=== PATIENT | female | born 2000 | race Caucasian/White ===

== ENCOUNTER 2019-10-19 14:55 | Emergency (ER) | payer OTHER, SELFPAY ==
[2019-10-19 14:56] VITALS: BMI 25.6
--- NOTE | 2019-10-19 14:58 | ED_ITS ---
Entered by Mandi Flower, acting as scribe for ZakiaEvelin HPI - Abdominal Pain General: Chief Complaint: Urogenital-Female Stated Complaint: KIDNEY PROBLEMS Time Seen by Provider: 10/19/19 14:57 Source: patient and RN notes reviewed Mode of arrival: ambulatory Limitations: no limitations History of Present Illness: HPI narrative: 18 yo female presents to ED with complaints of R side flank pain. The patient states she has had cloudy urine for 2 days and she began having R flank pain today. She has had a headache and chills. She denies vomiting. She said she has an umbilical hernia but has not had it repeired. She has no past pertinent medical history. She denies smoking and use of street drugs. MD elicited complaint: abdominal pain (R) and flank pain (R) Pertinent past history: none Onset (ago): day(s) (2) Pain Consistency: constant Location: RLQ and R flank Severity: moderate Quality: stabbing Radiation: RLQ Migration to: RLQ Exacerbating factors: nothing Relieving factors: nothing Associated Symptoms: Reports chills; Denies coffee ground emesis, constipation, GI cramping, diarrhea, hematochezia, hematuria, hematemesis, melena, nausea, syncope and vomiting Review of Systems General: Reports: other (negative unless marked) Const: Reports: chills Eyes: Denies: change in vision or blurry vision ENMT: Denies: throat pain, painful swallowing, hoarseness, ear pain, ear discharge, Change in hearing or nasal discharge Card: Denies: chest pain, palpitations, irregular heart rhythm, syncope, pre- syncope, shortness of breath on exertion or shortness of breath when lying down Resp: Denies: shortness of breath, productive cough, non-productive cough, wheezing, coughing up blood or chest congestion GI: Denies: abdominal pain, nausea, vomiting, vomiting blood, coffee grounds in vomit, diarrhea, constipation, cramping, blood in stool or black tarry stool : Denies: decreased urine ouput, urinary incontinence or blood in urine Musc: Denies: neck pain, back pain, extremity pain, extremity swelling, joint pain, joint swelling, joint warmth or joint stiffness Skin/Breast: Denies: rash, skin tenderness or yellow skin Neuro: Denies: headache, numbness in extremities, weakness in extremities, changes in sensation, lack of coordination, difficulty walking, dizziness, vertigo or confusion Endo: Denies: excessive thirst, tired all the time, cold intolerance, excessive sweating, flushing or hot flashes Ziyad/Lymph: Denies: easy bruising, easy bleeding, petechiae or enlarged lymph nodes All/Imm: Denies: hives, throat swelling, tongue swelling, facial swelling or acute wheezing PFSH ED PFSH: Social History Smoking and tobacco status: never smoked Alcohol intake: never Physical Exam Const: COMMON NORMALS: no apparent distress, oriented x3, no limitations, healthy appearing and well nourished EXAM LIMITATIONS: no altered mental status GENERAL APPEARANCE: cooperative, well kempt and well developed ORIENTATION/CONSCIOUSNESS: Yes awake HENMT: COMMON NORMALS: normocephalic, head/scalp atraumatic, hearing grossly normal bilaterally, external ears normal, EAC's normal, external nose normal and moist oral mucous membranes HEAD & SCALP: normal to inspection, normocephalic and atraumatic FACE & SINUS: normal facial exam and face symmetric NOSE: external nose normal and nares normal EXTERNAL EAR: Yes external ears normal EXTERNAL AUDITORY CANAL: EAC's normal MOUTH: oral and palatal mucosa normal and tongue normal Eye: COMMON NORMALS: PERRL, EOMs intact bilaterally, conjunctivae normal and no scleral icterus GENERAL EYE: normal appearance of both eyes and normal light reflex CONJUNCTIVA: Yes conjunctivae normal SCLERA: sclerae normal CORNEA: Yes corneas normal PUPIL: Yes PERRL DIRECT OPHTHALMOSCOPY: Yes normal light reflex Neck/C-Spine: COMMON NORMALS: full ROM, no lymphadenopathy, supple, no meningeal signs and no JVD GENERAL: Yes normal visual inspection and Yes trachea midline CERVICAL SPINE: Yes cervical ROM normal Chest: COMMONS NORMALS: inspection of chest normal and palpation of chest normal Resp: COMMON NORMALS: normal respiratory effort, no retractions, no use of accessory muscles and clear to auscultation bilaterally EFFORT & INSPECTION: Yes able to speak in complete sentences AUSCULTATION: clear to auscultation bilaterally Cardio: COMMON NORMALS: no JVD, regular rate, regular rhythm, S1 normal heart sound, S2 normal heart sound, no gallops, no clicks, no murmurs and no rub JUGULAR VENOUS DISTENTION: no JVD RATE: regular rate and tachycardic RHYTHM: regular rhythm HEART SOUNDS: S1 normal and S2 normal GI: COMMON NORMALS: soft to palpation, no hepatosplenomegaly and no masses INSPECTION: Yes normal to inspection PALPATION: Yes soft and Yes no hepatosplenomegaly Back/Pelvis: COMMON NORMALS: thoracic and lumbar spine normal to inspection, no thoracic nor lumbar tenderness and thoraco-lumbar ROM normal Extremity: COMMON NORMALS: normal to inspection, full ROM, normal capillary refill, no joint enlargement, no clubbing, cyanosis or edema and no calf tenderness Neuro: COMMON NORMALS: oriented x3, CN's II-XII intact bilaterally, moves all extremities, no focal motor deficits and no sensory deficits noted MENINGEAL SIGNS: Yes no meningeal signs Psych: COMMON NORMALS: mental status grossly normal, thought process normal, cooperative, affect normal, speech normal and activity/motor behavior normal APPEARANCE: Yes well kempt SPEECH: Yes normal speech THOUGHT PROCESS: normal thought process Skin: COMMON NORMALS: no rashes or lesions noted, skin turgor normal, no jaundice, no petechiae and no mottling GENERAL SKIN EXAM: no rashes or lesions noted and turgor normal Course Vital Signs: Vital signs: Vital Signs Temperature 100.7 F H 10/19/19 15:02 Pulse Rate 86 10/19/19 17:12 Respiratory Rate 17 10/19/19 17:12 Blood Pressure 113/53 10/19/19 17:12 Pulse Oximetry 98 10/19/19 17:12 MDM - Abdominal Pain MDM Narrative: Medical decision making narrative: Diane is a very nice 18-year-old female who comes in complaining of right flank pain. CT scan shows no evidence of appendicitis or renal stone. Her findings are consistent with a pyelonephritis. She was febrile here but her lactate is normal. She is able to keep down fluids and medications without any vomiting. She feels like going home. I believe this was appropriate at this time. She denies having any other complaints or concerns agrees to return should her symptoms change or worsen. Lab Data: Labs: Lab Results 10/19/19 10/19/19 10/19/19 Range/Units 15:16 15:16 15:16 WBC 15.0 H (4.5-13.0) 10^3/ uL RBC 4.36 (4.1-5.3) 10^6/u L Hgb 12.7 (11.5-15.3) g/dL Hct 39.0 (37.0-47.0) % MCV 89.4 (81-99) fL MCH 29.1 (28.0-34.0) pg MCHC 32.6 (30.0-36.0) g/dL RDW 12.5 (12.1-15.1) % Plt Count 324 (130-400) 10^3/c mm MPV 10.2 (7.4-10.4) fL Neut % (Auto) 79.2 % Lymph % (Auto) 13.5 % [place] % (Auto) 6.6 % Eos % (Auto) 0.1 % Baso % (Auto) 0.3 % Neut # (Auto) 11.9 H (1.8-8.0) 10^3/u L Lymph # (Auto) 2.0 (1.5-6.5) 10^3/u L [place] # (Auto) 1.0 H (0.2-0.9) 10^3/u L Eos # (Auto) 0.0 (0.0-0.8) 10^3/u L Baso # (Auto) 0.0 (0.0-0.1) 10^3/u L Nucleated RBC % (a uto) 0 % Nucleated RBCs # 0.0 /100WBC Sodium 135 L (136-145) mmol/L Potassium 3.6 (3.5-5.1) mmol/L Chloride 98 (98-107) mmol/L Carbon Dioxide 24 (22-29) mmol/L Anion Gap 16.6 (5-19) BUN 9 (6-20) mg/dL Creatinine 0.8 (0.5-0.9) mg/dL GFR Calculation 91.4 (90-130) mL/min Glucose 158 H (65-115) mg/dL Lactic Acid 1.3 (0.5-2.2) mmol/L Calcium 9.6 (8.5-10.5) mg/dL Total Bilirubin 0.6 (0.15-1.2) mg/dL AST 14 (0-32) U/L ALT 7 (0-33) U/L Alkaline Phosphata se 126 H (35-105) IU/L Total Protein 7.8 (6.6-8.7) g/dL Albumin 4.2 (3.5-5.2) g/dL Globulin 3.6 (1.3-4.6) g/dL HCG, Qual (Negative) Urine Color (Yellow) Urine Appearance (CLEAR) Urine pH (5-7) Ur Specific Gravit y (1.005-1.030) Urine Protein (Negative) Urine Glucose (UA) (Normal) Urine Ketones (Negative) Urine Blood (Negative) Urine Nitrate (Negative) Urine Bilirubin (NEGATIVE) Urine Urobilinogen (Negative) mg/dL Ur Leukocyte Patti ase (Negative) Urine RBC (0-2) /hpf Urine WBC (0-5) /hpf Ur Squamous Epith Cells (0-5) Urine Bacteria (NONE) 10/19/19 10/19/19 Range/Units 15:16 16:30 WBC (4.5-13.0) 10^3/ uL RBC (4.1-5.3) 10^6/u L Hgb (11.5-15.3) g/dL Hct (37.0-47.0) % MCV (81-99) fL MCH (28.0-34.0) pg MCHC (30.0-36.0) g/dL RDW (12.1-15.1) % Plt Count (130-400) 10^3/c mm MPV (7.4-10.4) fL Neut % (Auto) % Lymph % (Auto) % [place] % (Auto) % Eos % (Auto) % Baso % (Auto) % Neut # (Auto) (1.8-8.0) 10^3/u L Lymph # (Auto) (1.5-6.5) 10^3/u L [place] # (Auto) (0.2-0.9) 10^3/u L Eos # (Auto) (0.0-0.8) 10^3/u L Baso # (Auto) (0.0-0.1) 10^3/u L Nucleated RBC % (a uto) % Nucleated RBCs # /100WBC Sodium (136-145) mmol/L Potassium (3.5-5.1) mmol/L Chloride (98-107) mmol/L Carbon Dioxide (22-29) mmol/L Anion Gap (5-19) BUN (6-20) mg/dL Creatinine (0.5-0.9) mg/dL GFR Calculation (90-130) mL/min Glucose (65-115) mg/dL Lactic Acid (0.5-2.2) mmol/L Calcium (8.5-10.5) mg/dL Total Bilirubin (0.15-1.2) mg/dL AST (0-32) U/L ALT (0-33) U/L Alkaline Phosphata se (35-105) IU/L Total Protein (6.6-8.7) g/dL Albumin (3.5-5.2) g/dL Globulin (1.3-4.6) g/dL HCG, Qual Negative (Negative) Urine Color Yellow (Yellow) Urine Appearance Cloudy (CLEAR) Urine pH 7.0 (5-7) Ur Specific Gravit y 1.000 L (1.005-1.030) Urine Protein Trace (Negative) Urine Glucose (UA) Norm (Normal) Urine Ketones Negative (Negative) Urine Blood 2+ H (Negative) Urine Nitrate Positive H (Negative) Urine Bilirubin Neg (NEGATIVE) Urine Urobilinogen Norm (Negative) mg/dL Ur Leukocyte Patti ase 2+ H (Negative) Urine RBC 15-25 H (0-2) /hpf Urine WBC 80-100 H (0-5) /hpf Ur Squamous Epith Cells 0-4 H (0-5) Urine Bacteria Trace (NONE) Imaging Data ^: CT Abd/Pel: Radiologist's impression: [place] [address] CT Scan Report Signed Patient: Diane Del Rosario #: [id number] : 2000Acct#:[id number] Age/Sex: FADM Date: 10/19/19 Loc: ERRoom/Bed: Attending Dr: Ordering Provider/Ordering MD: Evelin Koehler DO Date of Service: 10/19/19 Procedure(s): CT kidney stone 34050 Accession Number(s): [id number] Report Number: [id number] PROCEDURE INFORMATION: Exam: CT Abdomen And Pelvis Without Contrast Exam date and time: 10/19/2019 3:14 PM Age: 18 years old Clinical indication: Abdominal pain; Right; Patient HX: C/O R flank pain and cloudy urine x 2 days; Additional info: Flank/abdominal pain TECHNIQUE: Imaging protocol: Computed tomography of the abdomen and pelvis without contrast. Total DLP: 760.12 mGy-cm Radiation optimization: All CT scans at this facility use at least one of these dose optimization techniques: automated exposure control; mA and/or kV adjustment per patient size (includes targeted exams where dose is matched to clinical indication); or iterative reconstruction. COMPARISON: [facility] OB > 14 weeks 08/22/2017 2:50 PM FINDINGS: Liver: Normal. No mass. Gallbladder and bile ducts: Normal. No calcified stones. No ductal dilation. Pancreas: Normal. No ductal dilation. Spleen: Normal. No splenomegaly. Adrenals: Normal. No mass. Kidneys and ureters: Normal. No hydronephrosis. Stomach and bowel: Colonic constipation is present. Appendix: A normal appendix is identified. Intraperitoneal space: There is a physiologic amount of free fluid in the pelvis. Vasculature: Unremarkable. No abdominal aortic aneurysm. Lymph nodes: Unremarkable. No enlarged lymph nodes. Bladder: Unremarkable as visualized. Reproductive: Unremarkable as visualized. Bones/joints: There is a transitional lumbosacral vertebra. 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 Soft tissues: Small fat containing umbilical hernia. CT/CT kidney stone 17818 IMPRESSION: Colonic constipation is present. Radiation Dose CTDIVOL = (mGy): DLP = 760.12 (mGy-cm) Dictated By:Maricruz Hidalgo MD Signed By:Maricruz Hidalgo MDSigned Date/Time:10/19/19 1611 DD/ Discharge Plan Discharge Patient Disposition: Home, Self-Care Clinical Impression: Pyelonephritis Condition: Stable Prescriptions: New cefdinir 300 mg capsule 300 mg PO Q12H 10 Days Qty: 20 RF: 0 Zofran 4 mg tablet 4 mg PO Q6H PRN (Reason: nausea and vomiting) Qty: 20 RF: 0 Discharge Orders: Discharge Order (Routine); Ordered 10/19/19 Ordered By: Evelin Koehler Referrals: Molina Pierson MD [Primary Care Provider] - 1-3 days Discharge Diet: Advance as tolerated Discharge Activity: Increase activity as tolerated Patient Instructions: Acute Pyelonephritis (ED) Activity Restrictions/Additional Instructions: Please return to the ER immediately for any of the signs or symptoms listed on your discharge instruction sheets, worsening/changing of your symptoms, you are not getting better as quickly as expected, or for ANY other cause or concerns. Alternate Tylenol Motrin as needed for fever and pain. Push oral fluids as much as possible. Return to the ER for vomiting, uncontrolled fever, increased pain, or for any other cause for concern. Stand Alone Forms: Work/School Release Discharge Date/Time: 10/19/19 17:13 Coding Level of Care Code ED Manager Sql for Chg Fwd Exam Comprehensive The documentation recorded by the Mundo jane Valerie R, accurately reflects the service I personally performed and the decisions made by , Evelin Koehler Oct 19, 2019 14:55
--- NOTE | 2019-10-19 15:01 | CTR_ITS ---
PROCEDURE INFORMATION: Exam: CT Abdomen And Pelvis Without Contrast Exam date and time: 10/19/2019 3:14 PM Age: 18 years old Clinical indication: Abdominal pain; Right; Patient HX: C/O R flank pain and cloudy urine x 2 days; Additional info: Flank/abdominal pain TECHNIQUE: Imaging protocol: Computed tomography of the abdomen and pelvis without contrast. Total DLP: 760.12 mGy-cm Radiation optimization: All CT scans at this facility use at least one of these dose optimization techniques: automated exposure control; mA and/or kV adjustment per patient size (includes targeted exams where dose is matched to clinical indication); or iterative reconstruction. COMPARISON: [facility] OB > 14 weeks 08/22/2017 2:50 PM FINDINGS: Liver: Normal. No mass. Gallbladder and bile ducts: Normal. No calcified stones. No ductal dilation. Pancreas: Normal. No ductal dilation. Spleen: Normal. No splenomegaly. Adrenals: Normal. No mass. Kidneys and ureters: Normal. No hydronephrosis. Stomach and bowel: Colonic constipation is present. Appendix: A normal appendix is identified. Intraperitoneal space: There is a physiologic amount of free fluid in the pelvis. Vasculature: Unremarkable. No abdominal aortic aneurysm. Lymph nodes: Unremarkable. No enlarged lymph nodes. Bladder: Unremarkable as visualized. Reproductive: Unremarkable as visualized. Bones/joints: There is a transitional lumbosacral vertebra. 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 Soft tissues: Small fat containing umbilical hernia. CT/CT kidney stone 35591 IMPRESSION: Colonic constipation is present. Radiation Dose CTDIVOL = (mGy): DLP = 760.12 (mGy-cm)
[2019-10-19 15:02] VITALS: BP 138/70; PULSE 120; RESP 18; TEMP 38.2; O2SAT 99
[2019-10-19 15:26] VITALS: O2SAT 98
[2019-10-19 15:28] LABS: Basophils % 0.3 %; Eosinophils % 0.1 %; Hemoglobin 12.7 g/dL (11.5-15.3); Lymphocytes % 13.5 %; Mean Corpuscular HGB Conc 32.6 g/dL (30.0-36.0); Mean Corpuscular Hemoglobin 29.1 pg (28.0-34.0); Mean Corpuscular Volume 89.4 fL (81-99); Mean Platelet Volume 10.2 fL (7.4-10.4); Monocytes % 6.6 %; Neutrophils # 11.9 10^3/uL (1.8-8.0); Neutrophils % 79.2 %; Nucleated Red Blood Cells % 0 %; Platelet Count 324 10^3/cmm (130-400); Red Blood Count 4.36 10^6/uL (4.1-5.3); Red Cell Distribution Width 12.5 % (12.1-15.1)
[2019-10-19 15:36] LABS: HCG, Serum Qual Negative (Negative)
[2019-10-19] MEDS: cefTRIAXone 1,000 MG in sodium chloride 0.9% (plus) 50 ML 100 MG IV (15:38)
[2019-10-19] MEDS: acetaminophen 500 mg Tablet 1000 MG PO (15:38)
[2019-10-19] MEDS: sodium chloride 0.9% 1,905.09 ML 1905.1 ML IV (15:38)
[2019-10-19] MEDS: morphine 4 mg/mL SDV 1 mL IVP (15:39)
[2019-10-19] MEDS: ondansetron 2 mg/ML SDV 2 mL 4 MG IVP (15:39)
[2019-10-19 15:43] LABS: Lactic Sepsis W/Reflex 1.3 mmol/L (0.5-2.2)
[2019-10-19 15:49] LABS: Alanine Aminotransferase 7 U/L (0-33); Albumin Level 4.2 g/dL (3.5-5.2); Alkaline Phosphatase 126 IU/L (35-105); Anion Gap 16.6 (5-19); Aspartate Amino Transferase 14 U/L (0-32); Blood Urea Nitrogen 9 mg/dL (6-20); Calcium 9.6 mg/dL (8.5-10.5); Carbon Dioxide 24 mmol/L (22-29); Chloride 98 mmol/L (98-107); Creatinine Clr Calc Pharmacy 98.2125; Globulin 3.6 g/dL (1.3-4.6); Glomerular Filtration Rate 91.4 mL/min (90-130); Glucose 158 mg/dL (65-115); Potassium 3.6 mmol/L (3.5-5.1); Sodium 135 mmol/L (136-145); Total Bilirubin 0.6 mg/dL (0.15-1.2); Total Protein 7.8 g/dL (6.6-8.7)
[2019-10-19 16:50] LABS: Bilirubin Urine Neg (NEGATIVE); Blood Urine 2+ (Negative); Glucose Urine UA Norm (Normal); Ketones Urine Negative (Negative); Leukocyte Esterase Urine 2+ (Negative); Nitrate Urine Positive (Negative); Protein Urine Trace (Negative); Urine Appearance Cloudy (CLEAR); Urine Color Yellow (Yellow); Urobilinogen Urine Norm (Negative)
[2019-10-19 17:01] LABS: Add Urine Culture? Yes; Bacteria Urine TRACE; RBC Urine 15-25 /hpf (0-2); Squamous Epithelial Cell Urine 0-4 (0-5); WBC Urine 80-100 /hpf (0-5)
[2019-10-19 17:12] VITALS: BP 113/53; PULSE 86; RESP 17; O2SAT 98
== END 2019-10-19 17:13 | disposition home or self-care (01) ==
PROVIDERS: Emergency Provider Emergency Medicine; Family Provider Family Medicine; PCP Family Medicine
DX: N12 Tubulo-interstitial nephritis, not specified as acute or chronic (principal); K59.00 Constipation, unspecified
CPT/HCPCS: 12345; 74176; 80053; 81001; 83605; 84703; 85025; 87086; 96365; 96374; 96375; 99283; A9270; J0696; J2270; J2405; J7030

== ENCOUNTER 2020-04-22 20:53 | Outpatient (CLI) | payer OTHER, MEDICAID, SELFPAY ==
[2020-04-22 21:23] VITALS: BP 107/57; PULSE 72
[2020-04-22 21:27] VITALS: BMI 28.7
[2020-04-22 21:37] VITALS: TEMP 36.8
== END 2020-04-22 21:32 | disposition home or self-care (01) ==
LOC: OPOB 21:19 → OBGYN 21:19
PROVIDERS: PCP Family Medicine; Visit Provider Family Medicine
DX: O26.899 Other specified pregnancy related conditions, unspecified trimester (principal); Z3A.23 23 weeks gestation of pregnancy; R10.9 Unspecified abdominal pain
CPT/HCPCS: 99211

== ENCOUNTER 2020-04-22 21:31 | Emergency (ER) | payer OTHER, MEDICAID, SELFPAY ==
[2020-04-22 21:36] VITALS: BP 110/64; PULSE 79; RESP 16; TEMP 36.6; O2SAT 98; BMI 28.7
[2020-04-22 21:51] LABS: Basophils % 0.2 %; Eosinophils # 0.2 10^3/uL (0.0-0.8); Eosinophils % 1.6 %; Hematocrit 29.8 % (37.0-47.0); Hemoglobin 9.7 g/dL (11.5-15.3); Lymphocytes # 3.8 10^3/uL (0.8-4.8); Lymphocytes % 30.8 %; Mean Corpuscular HGB Conc 32.6 g/dL (30.0-36.0); Mean Corpuscular Hemoglobin 31.3 pg (28.0-34.0); Mean Corpuscular Volume 96.1 fL (81-99); Mean Platelet Volume 10.4 fL (7.4-10.4); Monocytes # 0.9 10^3/uL (0.2-0.9); Monocytes % 6.9 %; Neutrophils # 7.38 10^3/uL (1.8-7.7); Neutrophils % 59.6 %; Nucleated Red Blood Cells % 0 %; Platelet Count 282 10^3/cmm (130-400); Red Cell Distribution Width 13.3 % (12.1-15.1); White Blood Count 12.4 10^3/uL (4.0-10.0)
[2020-04-22 22:14] LABS: Alanine Aminotransferase < 5 U/L (0-33); Albumin Level 3.3 g/dL (3.5-5.2); Alkaline Phosphatase 71 IU/L (35-105); Anion Gap 10.5 (5-19); Aspartate Amino Transferase 9 U/L (0-32); Blood Urea Nitrogen 5 mg/dL (6-20); Calcium 8.2 mg/dL (8.5-10.5); Carbon Dioxide 24 mmol/L (22-29); Chloride 103 mmol/L (98-107); Globulin 2.7 g/dL (1.3-4.6); Glomerular Filtration Rate 201.5 mL/min (90-130); Glucose 106 mg/dL (65-115); Lipase 27 U/L (13-60); Osmolality Calculated 274 mOsm/kg (285-295); Potassium 3.5 mmol/L (3.5-5.1); Sodium 134 mmol/L (136-145); Total Bilirubin 0.2 mg/dL (0.15-1.2)
--- NOTE | 2020-04-22 22:38 | ED_ITS ---
HPI - Abdominal Pain General: Chief Complaint: Abdominal Pain Stated Complaint: abd pain Time Seen by Provider: 04/22/20 22:27 Source: patient Mode of arrival: ambulatory Limitations: no limitations History of Present Illness: HPI narrative: 19-year-old female who is currently 23 weeks states she has an abdominal umbilical hernia. States with her last it got worse and caused her discomfort. States she has had pain over the last few days. She is able to reduce the hernia at home. States it seems to be improved when she wears any pants that presses on her abdomen. States pain is currently 4 out of 10. Denies any vomiting or diarrhea. MD elicited complaint: abdominal pain Associated Symptoms: Denies chills, dysuria and fever(s) Related Data: Date of Last Menstrual Period: 10/13/19 Review of Systems Const: Denies: fever(s), chills, body aches or change in appetite Eyes: Denies: blurry vision or eye discomfort ENMT: Denies: throat pain or dental pain Card: Denies: chest pain Resp: Denies: dyspnea GI: Reports: abdominal pain : Denies: dysuria Musc: Denies: neck pain or back pain Skin/Breast: Denies: rash Neuro: Denies: headache(s) Psych: Denies: depression Ziyad/Lymph: Denies: easy bruising All/Imm: Denies: urticaria PFSH ED PFSH: Social History Smoking and tobacco status: never smoked Alcohol intake: never Female Reproductive History: Date of last menstrual period: 10/13/19 Physical Exam Const: COMMON NORMALS: no acute distress, patient oriented x3 and healthy appearing HENMT: COMMON NORMALS: normocephalic and atraumatic HEAD & SCALP: normocephalic and atraumatic Eye: COMMON NORMALS: Equal, round and reactive pupils present and EOMs intact bilaterally PUPIL: Yes Equal, round and reactive pupils present Neck/C-Spine: COMMON NORMALS: full ROM and supple Chest: COMMONS NORMALS: normal inspection of the chest and normal palpation of entire chest wall Resp: COMMON NORMALS: normal respiratory effort, No retractions, No use of accessory muscles and clear to auscultation bilaterally AUSCULTATION: clear to auscultation bilaterally Cardio: COMMON NORMALS: regular rate, regular rhythm and No murmurs present (Cardio) RATE: regular rate RHYTHM: regular rhythm GI: COMMON NORMALS: Soft to palpation PALPATION: Yes Soft to palpation OTHER: Umbilical hernia noted easily reducible. Minimal tenderness. Patient does have a gravid uterus. Extremity: COMMON NORMALS: normal to inspection and full ROM Neuro: COMMON NORMALS: patient oriented x3, moves all extremities and no focal motor deficits Psych: COMMON NORMALS: mental status grossly normal, Normal thought process present and cooperative THOUGHT PROCESS: Normal thought process present Skin: COMMON NORMALS: no rashes or lesions noted and no wounds GENERAL SKIN EXAM: no rashes or lesions noted Course Vital Signs: Vital signs: Vital Signs Temperature 97.8 F 04/22/20 21:36 Pulse Rate 79 04/22/20 21:36 Respiratory Rate 16 04/22/20 21:36 Blood Pressure 110/64 04/22/20 21:36 Pulse Oximetry 98 04/22/20 21:36 MDM - Abdominal Pain MDM Narrative: Medical decision making narrative: Patient presents here with abdominal pain from umbilical hernia. Hernia is easily reduced. She was cleared by OB before coming down to the ER. She is well-appearing here and lab work is normal. She is stable for discharge and is to follow-up with Dr. Pierson. Lab Data: Labs: Lab Results 04/22/20 04/22/20 Range/Units 21:47 21:47 WBC 12.4 H (4.0-10.0) 10^3/ uL RBC 3.10 L (4.1-5.3) 10^6/u L Hgb 9.7 L (11.5-15.3) g/dL Hct 29.8 L (37.0-47.0) % MCV 96.1 (81-99) fL MCH 31.3 (28.0-34.0) pg MCHC 32.6 (30.0-36.0) g/dL RDW 13.3 (12.1-15.1) % Plt Count 282 (130-400) 10^3/c mm MPV 10.4 (7.4-10.4) fL Neut % (Auto) 59.6 % Lymph % (Auto) 30.8 % [place] % (Auto) 6.9 % Eos % (Auto) 1.6 % Baso % (Auto) 0.2 % Neut # (Auto) 7.38 (1.8-7.7) 10^3/u L Lymph # (Auto) 3.8 (0.8-4.8) 10^3/u L [place] # (Auto) 0.9 (0.2-0.9) 10^3/u L Eos # (Auto) 0.2 (0.0-0.8) 10^3/u L Baso # (Auto) 0.0 (0.0-0.1) 10^3/u L Nucleated RBC % (a uto) 0 % Nucleated RBCs # 0.0 /100WBC Sodium 134 L (136-145) mmol/L Potassium 3.5 (3.5-5.1) mmol/L Chloride 103 (98-107) mmol/L Carbon Dioxide 24 (22-29) mmol/L Anion Gap 10.5 (5-19) BUN 5 L (6-20) mg/dL Creatinine 0.4 L (0.5-0.9) mg/dL GFR Calculation 201.5 H (90-130) mL/min Glucose 106 (65-115) mg/dL Calculated Osmolal ity 274 L (285-295) mOsm/k g Calcium 8.2 L (8.5-10.5) mg/dL Total Bilirubin 0.2 (0.15-1.2) mg/dL AST 9 (0-32) U/L ALT < 5 (0-33) U/L Alkaline Phosphata se 71 (35-105) IU/L Total Protein 6.0 L (6.6-8.7) g/dL Albumin 3.3 L (3.5-5.2) g/dL Globulin 2.7 (1.3-4.6) g/dL Lipase 27 (13-60) U/L Discharge Plan Discharge Patient Disposition: Home Clinical Impression: Hernia, umbilical Qualifiers: Obstruction and gangrene presence: without obstruction or gangrene Qualified Code(s): K42.9 - Umbilical hernia without obstruction or gangrene Condition: Stable Discharge Orders: Discharge Order (Routine); Ordered 04/22/20 Ordered By: Tamra Calvert Referrals: Molina Pierson MD [Primary Care Provider] - 1-3 days Discharge Diet: Advance as tolerated Discharge Activity: Resume usual activity Patient Instructions: Umbilical Hernia (ED) Coding Level of Care Code ED Forestry Biology Specialist for Chg Fwd Exam Comprehensive
[2020-04-22 22:49] VITALS: BP 123/78; PULSE 76; RESP 12; O2SAT 99
[2020-04-22 22:50] VITALS: BP 123/78; PULSE 76; RESP 12; O2SAT 99
== END 2020-04-22 22:51 | disposition home or self-care (01) ==
PROVIDERS: Emergency Provider Emergency Medicine; PCP Family Medicine
DX: K42.9 Umbilical hernia without obstruction or gangrene (principal)
CPT/HCPCS: 12345; 36415; 80053; 83690; 85025; 99281; 99283

== ENCOUNTER 2020-05-29 14:05 | Outpatient (CLI) | payer OTHER, MEDICAID, SELFPAY ==
[2020-05-29 14:20] VITALS: BP 124/63; PULSE 98
[2020-05-29 14:24] VITALS: BMI 29.0
[2020-05-29 14:35] VITALS: BP 115/58; PULSE 92
[2020-05-29 14:50] VITALS: BP 114/54; PULSE 84
[2020-05-29 14:51] VITALS: RESP 18; TEMP 36.9
[2020-05-29 14:56] LABS: Bilirubin Urine Neg (Negative); Blood Urine 3+ (Negative); Glucose Urine UA Norm (Normal); Ketones Urine Negative (Negative); Leukocyte Esterase Urine 2+ (Negative); Nitrate Urine Negative (Negative); Protein Urine Neg (Negative); Specific Gravity, Urine 1.015 (1.005-1.030); Sulfosalicylic Acid Urine Positive (Negative); Urine Appearance Cloudy (CLEAR); Urine Color Yellow (Yellow); Urobilinogen Urine Neg (Negative); pH Urine 8 (5-7)
[2020-05-29 14:57] LABS: Add Urine Culture? No; Bacteria Urine 2+ /hpf; RBC Urine 40-50 /hpf (0-2); Squamous Epithelial Cell Urine 15-25 /hpf (0-5); WBC Urine >100 /hpf (0-5)
[2020-05-29 15:05] VITALS: BP 111/56; PULSE 87
[2020-05-29] MEDS: cefTRIAXone 1,000 MG, lidocaine 1% 2.1 ML in SYRINGE 1 EACH 20 MG IM (15:40)
[2020-05-29 15:44] VITALS: BP 111/56; PULSE 87; RESP 18; TEMP 36.9
== END 2020-05-29 15:44 | disposition home or self-care (01) ==
LOC: OPOB 14:13 → OBGYN 14:14
PROVIDERS: PCP Family Medicine; Visit Provider Family Medicine
DX: O46.90 Antepartum hemorrhage, unspecified, unspecified trimester (principal); Z3A.00 Weeks of gestation of pregnancy not specified
CPT/HCPCS: 59025; 81001; 96372; 99211; J0696

== ENCOUNTER 2020-08-21 19:00 | Inpatient (IN) | payer OTHER, MEDICAID, SELFPAY ==
[2020-08-21] VITALS (19 sets, daily range): BP systolic 99–125; BP diastolic 55–71; PULSE 75–93; RESP 16–17; TEMP 36.4–37; O2SAT 98–99; BMI 31.6
[2020-08-21] MEDS: miSOPROStol 100 mcg tablet 25 MCG VAGINAL (20:31)
[2020-08-21 20:51] LABS: Basophils % 0.2 %; Eosinophils # 0.1 10^3/uL (0.0-0.8); Hematocrit 27.7 % (37.0-47.0); Hemoglobin 8.7 g/dL (11.5-15.3); Lymphocytes # 3.1 10^3/uL (0.8-4.8); Mean Corpuscular HGB Conc 31.4 g/dL (30.0-36.0); Mean Corpuscular Hemoglobin 26.9 pg (28.0-34.0); Mean Corpuscular Volume 85.8 fL (81-99); Mean Platelet Volume 12.1 fL (7.4-10.4); Monocytes # 0.9 10^3/uL (0.2-0.9); Neutrophils # 6.58 10^3/uL (1.8-7.7); Neutrophils % 61.2 %; Nucleated Red Blood Cells % 0 %; Platelet Count 285 10^3/cmm (130-400); Red Blood Count 3.23 10^6/uL (4.1-5.3); Red Cell Distribution Width 14.2 % (12.1-15.1); White Blood Count 10.8 10^3/uL (4.0-10.0)
[2020-08-22] VITALS (102 sets, daily range): BP systolic 97–139; BP diastolic 51–92; PULSE 54–98; RESP 16–18; TEMP 36.6–37.2
[2020-08-22] MEDS: miSOPROStol 100 mcg tablet 25 MCG VAGINAL (00:39)
[2020-08-22] MEDS: dextrose 5%-lactated ringers 1,000 ML 125 ML IV ×2 (01:47→12:27)
[2020-08-22] MEDS: oxytocin 30 UNIT/500 ML BAG IV (10:30)
[2020-08-22] MEDS: fentaNYL 50 mcg/mL INJ 2mL IV ×3 (12:53→16:47)
[2020-08-22] MEDS: lactated ringers 1,000 ML 999 ML IV ×2 (14:58→16:00)
--- NOTE | 2020-08-22 17:42 | PM.DELIVERY ---
Delivery Note: Date of delivery: August 22, 2020 Pre-Delivery Course: The patient presented to the hospital for induction due to gestational hypertension. In my office she had had normal blood pressures throughout her . On her visit to the office on the day of delivery, she was found to have a systolic blood pressure of both 178, and 168 almost in half hour apart. She had some chronic edema in her legs and hands, but none in her face. She had had headaches intermittently through her and the one she was having yesterday were no different. There were no other signs of preeclampsia. Because of her gestational age, it was felt that the benefits outweigh the risks of proceeding with induction. Delivery: DELIVERY: The patient progressed to complete without difficulty. She delivered a female with a weight of 9 pounds 2 ounces with Apgars of 7, 9. The baby was delivered from the ESTEVAN position and placed on the mother's abdomen. The cord was then clamped and cut. There was a nuchal cord x1 which was easily reduced after delivery of the head. There was no meconium. The placenta and 3 vessel cord were delivered intact shortly thereafter. The perineum and vaginal vault were carefully examined. No lacerations were noted. Both the mother and the baby were in stable condition. A&P Assessment and plan (1) Gestational hypertension: I anticipate routine care. If all goes well, she will be discharged home with her baby tomorrow. She has had almost no elevated blood pressures since arriving at the hospital. As such I would no longer need to keep her on the hypertensive protocol unless she starts spiking high Blood pressures again. Status: Acute (2) 38 weeks gestation of : Status: Acute Coding Level of Care Code Acute Aircraft Manager for [facility] Fwd Diagnoses Gestational hypertension O13.9 38 weeks gestation of Z3A.38
[2020-08-22] MEDS: docusate sodium 100 mg Capsule PO (18:47)
[2020-08-22] MEDS: ibuprofen 800 mg tablet PO (20:49)
[2020-08-23] VITALS (12 sets, daily range): BP systolic 109–126; BP diastolic 54–65; PULSE 65–85; RESP 15–17; TEMP 36.5–37.4
[2020-08-23 05:11] LABS: Hematocrit 25.6 % (37.0-47.0); Hemoglobin 7.8 g/dL (11.5-15.3); Mean Corpuscular HGB Conc 30.5 g/dL (30.0-36.0); Mean Corpuscular Hemoglobin 26.1 pg (28.0-34.0); Mean Corpuscular Volume 85.6 fL (81-99); Mean Platelet Volume 12.2 fL (7.4-10.4); Platelet Count 252 10^3/cmm (130-400); Red Blood Count 2.99 10^6/uL (4.1-5.3); Red Cell Distribution Width 14.6 % (12.1-15.1); White Blood Count 15.4 10^3/uL (4.0-10.0)
[2020-08-23] MEDS: prenatal vitamin Capsule 1 CAP PO (09:01)
[2020-08-23] MEDS: fluoxetine 10 mg Capsule PO (09:01)
[2020-08-23] MEDS: docusate sodium 100 mg Capsule PO (09:01)
[2020-08-23] MEDS: ibuprofen 800 mg tablet PO ×2 (09:01→15:45)
--- NOTE | 2020-08-23 11:56 | P.DS_ITS ---
Discharge Providers REFUELING RAMP ATTENDANT Date of Admission: 08/21/20 19:00 Date of Discharge: 08/23/20 Attending Provider at Admission: Molina Pierson MD Attending Provider at Discharge: Molina Pierson MD Primary Care Provider: Molina Pierson MD Diagnoses at Discharge Discharge Diagnosis (1) Gestational hypertension: Status: Acute (2) 38 weeks gestation of : Status: Acute Reason for Visit Reason for Visit: induction of labor Information Peripartum Data: Infant Delivery Method: Vaginal Physical Exam Narrative: EXAM NARRATIVE: The patient is alert. She appears comfortable. Her heart has a regular rate and rhythm with no murmurs appreciated. Lungs are clear to auscultation bilaterally. Her fundus is firm and below the umbilicus. Discharge Data Data Completed and Pending: Labs from last 24 hours 08/23/20 04:44 WBC 15.4 H RBC 2.99 L Hgb 7.8 L Hct 25.6 L MCV 85.6 MCH 26.1 L MCHC 30.5 RDW 14.6 Plt Count 252 MPV 12.2 H Vitals: Last Vital Signs Temp 97.7 F 08/23/20 09:31 Pulse 85 08/23/20 09:31 Resp 16 08/23/20 10:49 BP 109/54 08/23/20 09:31 Pulse Ox 99 08/21/20 22:13 Discharge Plan Discharge Patient Disposition: Home Condition: Stable Prescriptions: New ibuprofen 800 mg Tablet 800 mg PO TID Qty: 30 RF: 0 Continued prenat.vits,jean pierre,[id number] capsule 1 caplet PO DAILY RF: 0 fluoxetine 10 mg tablet 10 mg PO DAILY RF: 0 Discharge Orders: Discharge Order (Routine); Ordered 08/23/20 Ordered By: Molina Pierson Referrals: Molina Pierson MD [Primary Care Provider] - 6 Weeks Discharge Diet: Advance as tolerated Discharge Activity: Limit activity as instructed Discharge Attestations REFUELING RAMP ATTENDANT Time Spent in Discharge Care*: less than 30 min Coding Level of Care Code Acute Keyboard Instrument Repairer for Chg Fwd Diagnoses Gestational hypertension O13.9 38 weeks gestation of Z3A.38
== END 2020-08-23 18:10 | disposition home or self-care (01) | DRG 807 ==
PROVIDERS: Admitting Provider Family Medicine; PCP Family Medicine; Visit Provider Family Medicine
DX: O13.4 Gestational [pregnancy-induced] hypertension without significant proteinuria, complicating childbirth (principal); Z37.0 Single live birth; Z3A.38 38 weeks gestation of pregnancy; O69.81X0 Labor and delivery complicated by cord around neck, without compression, not applicable or unspecified
CPT/HCPCS: 12345; 36415; 59409; 85025; 85027; 96374; 96375; J3010

== ENCOUNTER 2021-03-30 19:38 | Emergency (ER) | payer MEDICAID, SELFPAY ==
[2021-03-30 19:45] VITALS: BP 120/72; PULSE 74; RESP 18; TEMP 37.1; O2SAT 99; BMI 27.4
--- NOTE | 2021-03-30 19:49 | ED_ITS ---
HPI - Skin/Abscess/Foreign Bdy General: Chief complaint: Skin/Abscess/Foreign Body Stated complaint: Spider Bite Time Seen by Provider: 03/30/21 19:49 History of Present Illness: HPI narrative: Patient is a 20-year-old female comes to the ED with possible spider bite on left leg. Patient says she noticed a painful sore on her left leg near the groin area around midday today. 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 Lesion area is tender and slightly raised. She says she scratched some dark-colored material off the top of it earlier today and after that it started hurting her more. patient is up-to-date on her tetanus. denies any bleeding or purulent drainage. Patient does endorse some dysuria. Patient currently has IUD for control. Associated symptoms: Deny chills, fever(s), nausea or vomiting Review of Systems Const: Denies: fever(s), chills or fatigue Eyes: Denies: change in vision or eye discomfort ENMT: Denies: throat pain, odynophagia, nasal discharge or nasal congestion Card: Denies: chest pain, palpitations, edema, swelling of feet/ankles, dyspnea on exertion or orthopnea Resp: Denies: dyspnea, productive cough or non-productive cough GI: Denies: abdominal pain, nausea, vomiting, diarrhea, constipation or hematochezia : Reports: dysuria; Denies: flank pain or hematuria Musc: Denies: neck pain, back pain or extremity swelling Skin/Breast: Reports: new lesions (possible spider bite lesion on left upper thigh); Denies: rash Neuro: Denies: headache(s), numbness in extremities or weakness in extremities PENDING SALE TO [facility] ED PFSH: Social History Smoking and tobacco status: never smoked Alcohol intake: never Female Reproductive History: Date of last menstrual period: 10/13/19 Physical Exam Const: COMMON NORMALS: no acute distress, patient oriented x3 and alert GENERAL APPEARANCE: cooperative HENMT: COMMON NORMALS: normocephalic HEAD & SCALP: normocephalic MOUTH: Normal oral and palatal mucosa present THROAT: posterior oropharynx normal and uvula midline Neck/C-Spine: COMMON NORMALS: supple GENERAL: Yes normal visual inspection Resp: COMMON NORMALS: normal respiratory effort, No retractions, No use of accessory muscles and clear to auscultation bilaterally AUSCULTATION: clear to auscultation bilaterally Cardio: COMMON NORMALS: regular rate, regular rhythm, S1 normal heart sound present, S2 normal heart sound present, No gallops present (Cardio), No clicks present (Cardio), No murmurs present (Cardio) and Peripheral pulses 2+ throughout RATE: regular rate RHYTHM: regular rhythm HEART SOUNDS: S1 normal heart sound present and S2 normal heart sound present PERIPHERAL PULSES: Peripheral pulses 2+ throughout GI: COMMON NORMALS: Normal to inspection, nondistended, normoactive bowel sounds present, Soft to palpation, non-tender and no masses PALPATION: Yes Soft to palpation : COMMON NORMALS: Yes no CVA tenderness BLADDER/KIDNEY EXAM: Yes no CVA tenderness Back/Pelvis: COMMON NORMALS: no CVA tenderness Extremity: NARRATIVE EXTREMITY EXAM: Left upper thigh lesion?raised tender nodule with erythema. There appears to be central ulceration. Lesion appears to potentially be a spider bite but no real signs of any cellulitis or infection setting in. GENERAL: Yes normal exam except as noted Neuro: COMMON NORMALS: patient oriented x3 and moves all extremities SENSORIUM/ORIENTATION: Yes alert Skin: NARRATIVE SKIN EXAM: Left upper thigh lesion?raised tender nodule with erythema. There appears to be central ulceration. Lesion appears to potentially be a spider bite but no real signs of any cellulitis or infection setting in. GENERAL SKIN EXAM: dry skin Course Vital Signs: Vital signs: Vital Signs Temperature 98.2 F 03/30/21 21:20 Pulse Rate 68 03/30/21 21:20 Respiratory Rate 16 03/30/21 21:20 Blood Pressure 126/74 03/30/21 21:20 Pulse Oximetry 99 03/30/21 21:20 MDM - Skin/Abscess/Foreign Bdy MDM Narrative: Medical decision making narrative: Patient is a 20-year-old female comes to the ED with spider bite on upper left thigh. She also reported having some dysuria. Patient appears nontoxic and in no acute distress. Vital stable. UA was not impressive for any signs of infection. Patient diagnosed with a spider bite and discharged home with a prescription for Bactrim. She was told to follow-up with her PCP in 7 days reevaluation. Return to ED precautions given. Patient stood agree with plan. Lab Data: Labs: Lab Results 03/30/21 Range/Units 20:00 Urine Color Yellow (Yellow) Urine Appearance Clear (CLEAR) Urine pH 7 (5-7) Ur Specific Gravit y 1.010 (1.005-1.030) Urine Protein Neg (Negative) Urine Glucose (UA) Norm (Normal) Urine Ketones Negative (Negative) Urine Blood Neg (Negative) Urine Nitrate Negative (Negative) Urine Bilirubin Neg (Negative) Urine Urobilinogen 4 H (Negative) mg/dL Ur Leukocyte Patti ase 1+ H (Negative) Urine RBC 0-4 H (0-2) /hpf Urine WBC 5-10 H (0-5) /hpf Ur Squamous Epith Cells 5-10 H (0-5) /hpf Amorphous Sediment Not Reportable Urine Bacteria 1+ H (NONE) /hpf Urine Mucus 1+ /hpf Discharge Plan Discharge Patient Disposition: Home Clinical Impression: Spider bite Qualifiers: Encounter type: initial encounter Injury intent: accidental or unintentional Qualified Code(s): T63.301A - Toxic effect of unspecified spider venom, accidental (unintentional), initial encounter Condition: Stable Prescriptions: New Bactrim DS 800-160 mg tablet 1 tab PO BID 7 Days Qty: 14 RF: 0 No Action No Known Home Medications RF: 0 Discharge Orders: Discharge ED (Routine); Ordered 03/30/21 Ordered By: Hunter Almodovar Discharge Diet: Regular Discharge Activity: Resume usual activity Patient Instructions: Brown Recluse Spider Bite, Insect Bite or Sting (ED) Activity Restrictions/Additional Instructions: Follow-up with medical provider as directed in 7 to 10 days for evaluation. Take medications as prescribed. Return to the ER or your medical provider if condition worsens. Please read and understand discharge instructions. Thank you for choosing [facility] for your healthcare needs today. Please realize this is an emergency room and that we are providing you with a medical screening exam and this may not be complete and all inclusive of all the testing and or work up that you may need to determine your ailment or severity of your illness. It is very important that you follow up as instructed or that you return to the Emergency Department should you have concerns or if your condition changes or worsens in any way. Coding Level of Care Code ED Pin Machine Tender for Mayuri Fwjabier Exam Comprehensive
[2021-03-30 19:56] VITALS: BP 140/62; PULSE 88; RESP 16; TEMP 36.8; O2SAT 97
--- NOTE | 2021-03-30 20:01 | PC.NURSE ---
This nurse stays at bedside with Nishi SANON for assessment of area. Area near inner upper thigh area.
--- NOTE | 2021-03-30 20:04 | PC.NURSE ---
Patient had last period 3 weeks ago and an IUD inserted 2 weeks ago.
[2021-03-30 21:00] LABS: Bilirubin Urine Neg (Negative); Blood Urine Neg (Negative); Glucose Urine UA Norm (Normal); Ketones Urine Negative (Negative); Nitrate Urine Negative (Negative); Protein Urine Neg (Negative); Urine Appearance Clear (CLEAR); Urine Color Yellow (Yellow); pH Urine 7 (5-7)
[2021-03-30 21:01] LABS: Leukocyte Esterase Urine 1+ (Negative); RBC Urine 0-4 /hpf (0-2); Urobilinogen Urine 4 mg/dL (Negative)
[2021-03-30 21:02] LABS: Bacteria Urine 1+ /hpf; Mucus Urine 1+ /hpf
[2021-03-30 21:04] LABS: Add Urine Culture? No
[2021-03-30 21:20] VITALS: BP 126/74; PULSE 68; RESP 16; TEMP 36.8; O2SAT 99
== END 2021-03-30 21:22 | disposition home or self-care (01) ==
PROVIDERS: Emergency Provider Physician Assistant
DX: T63.301A Toxic effect of unspecified spider venom, accidental (unintentional), initial encounter (principal)
CPT/HCPCS: 81001; 99282

== ENCOUNTER → 2021-05-13 11:48 | Outpatient (BNVA) | payer MEDICAID, SELFPAY | PROVIDERS: Visit Provider Surgery | DX: Z20.822 Contact with and (suspected) exposure to COVID-19 (principal); Z11.52 Encounter for screening for COVID-19 | CPT/HCPCS: 87635 ==

== ENCOUNTER 2021-05-16 09:08 | Emergency (ER) | payer MEDICAID, SELFPAY ==
[2021-05-16 09:34] VITALS: BP 124/56; RESP 17; TEMP 37.2; O2SAT 97; BMI 26.9
--- NOTE | 2021-05-16 09:44 | W.ED.URI ---
HPI - URI/Sore Throat General: Chief Complaint: Headache Stated Complaint: Swollen Tonsils/Sore Throat Time Seen by Provider: 05/16/21 09:12 History of Present Illness: HPI Narrative: Patient is a 20-year-old female comes to the ED with sore throat. Proximal 2 days ago patient started developing sore throat. This morning she woke up and when she looked in the mirror she noticed redness in the back of her throat with some white stuff as well. She also says her neck feels a little sore as well. Denies any fever, chills, nausea/vomiting, abdominal pain, bladder or bowel symptoms. Associated symptoms: Deny abdominal pain, chills, chest pain, diarrhea, fever(s), headache(s), nasal congestion, nausea or vomiting Review of Systems Const: Denies: fever(s), chills or fatigue Eyes: Denies: change in vision or eye discomfort ENMT: Reports: throat pain; Denies: odynophagia, nasal discharge or nasal congestion Card: Denies: chest pain, palpitations, edema, swelling of feet/ankles, dyspnea on exertion or orthopnea Resp: Denies: dyspnea, productive cough or non-productive cough GI: Denies: abdominal pain, nausea, vomiting, diarrhea, constipation or hematochezia : Denies: flank pain, dysuria or hematuria Musc: Denies: neck pain, back pain or extremity swelling Skin/Breast: Denies: rash or new lesions Neuro: Denies: headache(s), numbness in extremities or weakness in extremities PFS ED PFSH: Social History Smoking and tobacco status: never smoked Alcohol intake: never Female Reproductive History: Date of last menstrual period: 10/13/19 Physical Exam Const: COMMON NORMALS: no acute distress, patient oriented x3 and alert GENERAL APPEARANCE: cooperative and comfortable HENMT: COMMON NORMALS: normocephalic HEAD & SCALP: normocephalic MOUTH: Normal oral and palatal mucosa present THROAT: uvula midline and posterior oropharynx abnormal erythema and exudates Eye: COMMON NORMALS: Equal, round and reactive pupils present PUPIL: Yes Equal, round and reactive pupils present Neck/C-Spine: COMMON NORMALS: supple GENERAL: Yes normal visual inspection Resp: COMMON NORMALS: normal respiratory effort, No retractions, No use of accessory muscles and clear to auscultation bilaterally AUSCULTATION: clear to auscultation bilaterally Cardio: COMMON NORMALS: regular rate, regular rhythm, S1 normal heart sound present, S2 normal heart sound present, No gallops present (Cardio), No clicks present (Cardio), No murmurs present (Cardio) and Peripheral pulses 2+ throughout RATE: regular rate RHYTHM: regular rhythm HEART SOUNDS: S1 normal heart sound present and S2 normal heart sound present PERIPHERAL PULSES: Peripheral pulses 2+ throughout GI: COMMON NORMALS: Normal to inspection, nondistended, normoactive bowel sounds present, Soft to palpation, non-tender and no masses PALPATION: Yes Soft to palpation : COMMON NORMALS: Yes no CVA tenderness BLADDER/KIDNEY EXAM: Yes no CVA tenderness Back/Pelvis: COMMON NORMALS: no CVA tenderness Extremity: COMMON NORMALS: normal to inspection GENERAL: Yes normal exam except as noted Neuro: COMMON NORMALS: patient oriented x3 and moves all extremities SENSORIUM/ORIENTATION: Yes alert Skin: GENERAL SKIN EXAM: dry skin Course Vital Signs: Vital signs: Vital Signs Temperature 98.6 F 05/16/21 12:21 Pulse Rate 97 05/16/21 12:21 Respiratory Rate 18 05/16/21 12:21 Blood Pressure 122/56 05/16/21 12:21 Pulse Oximetry 97 05/16/21 12:21 MDM - URI/Sore Throat MDM Narrative: Medical decision making narrative: Patient is a 20-year-old female comes to the ED with a sore throat. Vital stable patient is afebrile. Upon exam patient's posterior oropharynx has erythema and exudates noted. Strep test was negative. Due to patient's exam findings I treated her for strep with the 1 dose of Bicillin IM. Patient diagnosed with pharyngitis and discharged home. Told to follow-up with PCP in 5 to 7 days reevaluation. Return to ED precautions given. Patient understood and agreed with plan. Lab Data: Attestation: I reviewed the patient's lab results. Labs: Lab Results 05/16/21 09:45 Group A Strep Rapi d Negative (Negative) Discharge Plan Discharge Patient Disposition: Home Clinical Impression: Pharyngitis Qualifiers: Pharyngitis/tonsillitis etiology: unspecified etiology Qualified Code(s): J02.9 - Acute pharyngitis, unspecified Condition: Stable Prescriptions: No Action No Known Home Medications RF: 0 Discharge Orders: Discharge ED (Routine); Ordered 05/16/21 Ordered By: Hunter Almodovar Discharge Diet: Regular Discharge Activity: Resume usual activity Patient Instructions: Pharyngitis (ED) Activity Restrictions/Additional Instructions: Follow-up with medical provider as directed in 5 to 7 days for reevaluation. Drink plenty of fluids and stay hydrated. You were given the single penicillin injection dose to treat strep while here in the ED. You do not need any other outpatient antibiotics after getting the injection dose. Return to the ER or your medical provider if condition worsens. Please read and understand discharge instructions. Thank you for choosing [facility] for your healthcare needs today. Please realize this is an emergency room and that we are providing you with a medical screening exam and this may not be complete and all inclusive of all the testing and or work up that you may need to determine your ailment or severity of your illness. It is very important that you follow up as instructed or that you return to the Emergency Department should you have concerns or if your condition changes or worsens in any way. Coding Level of Care Code ED Service Operations Manager for Mayuri Riojas Exam Comprehensive
[2021-05-16 11:21] LABS: Rapid Strep A Test Negative (Negative)
[2021-05-16] MEDS: penicillin g (L-A) 1,200,000 unit/2 mL Syr 1200000 UNIT IM (12:05)
[2021-05-16 12:21] VITALS: BP 122/56; PULSE 97; RESP 18; TEMP 37; O2SAT 97
== END 2021-05-16 12:23 | disposition home or self-care (01) ==
PROVIDERS: Emergency Provider Physician Assistant
DX: J02.9 Acute pharyngitis, unspecified (principal)
CPT/HCPCS: 87081; 87880; 96372; 99283; J0561

== ENCOUNTER 2021-05-19 08:53 | Day surgery (SDC) | payer MEDICAID, SELFPAY ==
[2021-05-18 13:36] VITALS: BMI 27.1
[2021-05-19] VITALS (12 sets, daily range): BP systolic 101–133; BP diastolic 53–92; PULSE 67–88; RESP 12–21; TEMP 36.1–36.4; O2SAT 97–100
--- NOTE | 2021-05-19 08:58 | W.PM.OPSUD ---
Surgery/Procedure H&P Update DATE OF PROCEDURE: May 19, 2021 DATE H&P PERFORMED: 05/04/21 H&P UPDATE INFORMATION: I have reviewed H&P completed within last 30 days, I have examined patient prior to procedure and No changes to prior documentation PLANNED PROCEDURE: Operation Date: 05/19/21 09:45 Proposed Procedures p Umbilical Hernia Repair 13222 K42.9(Not Applicable) - Johnson Meier MD
[2021-05-19] MEDS: sodium chloride 0.9% 1,000 ML 30 ML IV (09:35)
[2021-05-19] MEDS: scopolamine 1.5 Patch 1 PATCH TRANSDERMA (09:39)
[2021-05-19 09:43] LABS: OR HCG Qualitative Urine Negative (Negative)
--- NOTE | 2021-05-19 09:52 | ANES.PREANE2 ---
Pre-Anesthetic Assessment Pre-Anesthetic Assessment: Height/Weight: Height 1.57 m Weight 67.132 kg Temp Pulse Resp BP Pulse Ox 97.6 F 76 16 113/71 100 05/19/21 09:05 05/19/21 09:05 05/19/21 09:05 05/19/21 09:05 05/19/21 09:05 Preop Diagnosis: umbilical hernia Proposed Procedure: Operation Date: 05/19/21 09:45 Proposed Procedures p Umbilical Hernia Repair 40899 K42.9(Not Applicable) - Johnson Meier MD Was Beta Emeka taken within 24 hours: N/A Was Clonidine taken within 24 hours: N/A Last intake: Intake Last Liquid Date 05/18/21 Last Liquid Time 20:00 Last Solid Date 05/18/21 Last Solid Time 20:00 Social: Social History: No alcohol and No tobacco Exam: Pre-Anes Outpt Exam: alert, oriented x 3, clear to auscultation bilaterally and regular rate & rhythm Airway: Submandibular: WNL Cervical ROM: WNL MP: 2 Dentition: Full History/ROS: No significant history except as noted Anesthetic Plan: ASA status: 1 Anesthesia: General Risk of > 500 ml blood loss (7ml/kg in children): No PFSH Anesthesia PFSH: Surgical History (Updated 05/19/21 @ 09:03 by Johnson Meier MD) History of umbilical hernia repair (05/19/21) Social History Smoking and tobacco status: never smoked Alcohol intake: never Female Reproductive History: Date of last menstrual period: 10/13/19 Data Anesthesia Other Labs: Laboratory Results - last 48 hr 05/19/21 09:21 Urine HCG, Qual Negative Cardiac Studies: No Data to Display
[2021-05-19] MEDS: fentaNYL 50 mcg/mL INJ 2mL IVP ×2 (12:15→12:23)
[2021-05-19] MEDS: HYDROmorphone 1 mg/mL INJ 1 mL 0.25 MG IVP (12:36)
[2021-05-19] MEDS: HYDROcodone-acetaminophen 5-325 mg Tablet 1 TAB PO (13:07)
--- NOTE | 2021-05-19 15:16 | ANE.PACU2 ---
Inpatient post-anesthesia follow up: Airway intact: Yes Vital signs: Temperature 97.3 F Pulse Rate 72 Respiratory Rate 18 Blood Pressure 133/91 Pulse Oximetry 100 Oxygen Delivery Me thod Room Air Oxygen Flow Rate Fraction of Inspir ed Oxygen Hydration adequate: Yes Nausea and vomiting: No Pain level: 2 Mental status: Baseline
--- NOTE | 2021-05-19 15:37 | P.OP_ITS ---
Operative Report Date of procedure: May 19, 2021 Pre-op Diagnosis: Incarcerated umbilical hernia Post-op Diagnosis: Incarcerated umbilical hernia containing omentum measuring 2 cm Procedure Done: Open primary repair of umbilical hernia Pathology: none sent Surgeon: Johnson Meier Anesthesia: General Condition: stable Disposition: PACU Procedure: The patient was taken to the operating room and intubated under general anesthesia after IV antibiotic had been administered. The abdomen was prepped and draped in a sterile manner. A 2 cm infraumbilical curvilinear incision was made using a 15 blade, a hernial sac dissected out using electroca utery and dissection with hemostats. The hernial sac was opened and omentum was reduced into the peritoneal cavity. Interrupted sutures using 0 Vicryl was used to close the hernial defect without any tension. The subcutaneous tissue was approximated using 3-0 Vicryl and skin was closed using running subcuticular 4-0 Monocryl sutures. Dermabond was then applied and 20 mL of 0.5% Marcaine was i nfiltrated around the incision. A 2 x 2 gauze was then placed within the umbilicus and sterile dressings are applied. The patient was stable throughout the procedure.
== END 2021-05-19 13:39 | disposition home or self-care (01) ==
PROVIDERS: Anesthesiology; PCP Family Medicine; Visit Provider Surgery
PROC: (CPT 49587; principal; 2021-05-19 09:45)
DX: K42.0 Umbilical hernia with obstruction, without gangrene (principal)
CPT/HCPCS: 49587; 84703; J0690; J1100; J1170; J2250; J2405; J2704; J3010; J3490; J7030